=== PATIENT | female | born 1970 | race Caucasian/White ===

== ENCOUNTER → 2017-04-16 | Outpatient (CLI) | payer OTHER ==
[~2017-04-16] MED LIST: NORCO 325 MG-51 TAB PO
== END ==
LOC: MC.RAD 13:40
DX: Z12.31 Encounter for screening mammogram for malignant neoplasm of breast (principal)

== ENCOUNTER 2017-11-05 13:55 | Emergency (ER) | payer OTHER ==
[~2017-11-05] VITALS: Ht 160 cm; Wt 117.3 kg
[2017-11-05 14:01] VITALS: TEMP 98.1
[2017-11-05 14:43] LABS: BASO % 0.4 % (0.0-2.0); EOS # 0.1 (0.0-0.7); EOS % 1.2 % (0-4.0); GRAN # 5.3 (1.4-6.5); GRAN % 54.4 % (42.2-75.2); HEMATOCRIT 42.4 % (37.0-47.0); HEMOGLOBIN 14.3 g/dl (12.5-16.0); LYMPH # 3.6 (1.2-3.4); LYMPH % 36.6 % (20.0-51.0); MEAN CELL VOLUME 90 fl (80.0-100.0); MEAN CORPUSCULAR HEMOGLOBIN 30 pg (27.0-31.0); MEAN CORPUSCULAR HGB CONC 34 g/dl (33.0-37.0); MEAN PLATELET VOLUME 8.9 fl (7.4-10.4); MONO # 0.7 (0.1-0.6); PLATELET COUNT 317 K/mm3 (130-400); REDCELL DISTRIBUTION WIDTH-CV 12.8 % (11.5-14.5)
[2017-11-05 14:56] LABS: ALBUMIN 4.2 gm/dL (3.5-5.0); BILIRUBIN,TOTAL 0.7 mg/dL (0.0-1.0); C-REACTIVE PROTEIN 1.7 mg/dL (0.0-0.9); CREATININE, serum 0.67 mg/dL (0.52-1.25); POTASSIUM 4.1 mmol/L (3.4-5.0); TOTAL PROTEIN 7.8 gm/dL (6.4-8.2)
[2017-11-05 17:13] VITALS: BP 122/72; PULSE 90
== END 2017-11-05 17:14 | disposition home or self-care (01) ==
LOC: COL.ER 13:55
PROVIDERS: Family Medicine
DX: N93.8 Other specified abnormal uterine and vaginal bleeding (principal); Z98.51 Tubal ligation status; F17.210 Nicotine dependence, cigarettes, uncomplicated; Z79.891 Long term (current) use of opiate analgesic
CPT/HCPCS: J1885; J2405; J7030

== ENCOUNTER 2023-08-13 10:04 | Emergency (ER) | payer OTHER ==
[~2023-08-13] VITALS: Ht 162.6 cm; Wt 113.6 kg
[2023-08-13 10:13] VITALS: TEMP 98.2
[2023-08-13] MEDS ORDERED: Morphine 4 MG/ML VIAL IV ONE (10:45)
[2023-08-13] MEDS ORDERED: NS 1,000 ML IV ONE (10:45)
[2023-08-13 10:50] LABS: BASO % 0.3 % (0.0-2.0); EOS # 0.1 K/mm3 (0.0-0.7); EOS % 0.8 % (0.0-4.0); GRAN # 6.6 K/mm3 (1.4-6.5); GRAN % 75.5 % (42.2-75.2); HEMATOCRIT 46.9 % (37.0-47.0); HEMOGLOBIN 15.1 g/dl (12.5-16.0); LYMPH # 1.5 K/mm3 (1.2-3.4); LYMPH % 17.5 % (20.0-51.0); MEAN CELL VOLUME 94 fl (80.0-100.0); MEAN CORPUSCULAR HEMOGLOBIN 30 pg (27-31); MEAN CORPUSCULAR HGB CONC 32 g/dl (33.0-37.0); MONO # 0.5 K/mm3 (0.1-0.6); MONO % 5.7 % (1.7-9.3); PLATELET COUNT 313 K/mm3 (130-400); RED BLOOD COUNT 5.01 M/mm3 (4.10-5.30)
[2023-08-13 11:15] LABS: ALBUMIN 3.4 g/dL (3.5-5.0); BILIRUBIN,TOTAL 0.9 mg/dL (0.2-1.2); CALCIUM 9.5 mg/dL (8.4-10.2); CREATININE, serum 0.74 mg/dL (0.57-1.11); POTASSIUM 4.2 mEq/L (3.5-4.5); TOTAL PROTEIN 7.8 g/dl (6.2-8.1)
[2023-08-13] MEDS ORDERED: Iohexol 300 - 100 ML VIAL IV ONE (11:33)
[2023-08-13] MEDS ORDERED: NS 100 ML IV SCH (11:34)
[2023-08-13] MEDS ORDERED: HYDROmorphone 0.5 MG/0.5 ML SYRINGE IV ONE ×2 (11:45→13:45)
[2023-08-13] MEDS ORDERED: MS CONTIN 115 MG/TAB PO (13:43)
[2023-08-13 14:09] VITALS: BP 138/88; PULSE 102
== END 2023-08-13 14:09 | disposition home or self-care (01) ==
LOC: COL.ER 10:04
PROVIDERS: Physician Assistant
DX: C78.6 Secondary malignant neoplasm of retroperitoneum and peritoneum (principal); N83.9 Noninflammatory disorder of ovary, fallopian tube and broad ligament, unspecified; E66.01 Morbid (severe) obesity due to excess calories; Z68.41 Body mass index [BMI] 40.0-44.9, adult
CPT/HCPCS: J1170; J2270; J7030; Q9967

== ENCOUNTER → 2023-09-04 | Outpatient (CLI) | payer OTHER ==
[~2023-09-04] MED LIST changes: +AMOXICILLIN 50500 MG PO; +FLEXERIL5 MG PO; +LASIX 20MG TABL20 MG PO; +MS CONTIN 115 MG/TAB PO
== END ==
LOC: COL.RAD 11:50
DX: C56.3 Malignant neoplasm of bilateral ovaries (principal)

== ENCOUNTER 2023-10-30 08:30 | Outpatient (CLI) | payer OTHER ==
[~2023-10-30] VITALS: Ht 162.6 cm; Wt 112.5 kg
[2023-10-30 08:41] VITALS: BP 123/86; PULSE 107; TEMP 98
--- NOTE | 2023-10-30 09:00 | NUR ---
PATIENT IS HERE FOR HER PARACENTESIS. PATIENT DECLINES DISCHARGE INSTRUCTIONS SHE IS HERE WEEKLY. PORT ACCESSED WITH GOOD BLOOD RETURN AND FLUSH. ALL NEEDS MET.
[2023-10-30 10:35] VITALS: BP 100/67; PULSE 80
[2023-10-30] MEDS ORDERED: Albumin (Human) 25 G/100 ML IVPB IV SCH (10:45)
[2023-10-30 10:51] LABS: PLEURAL FLUID APPEARANCE TURBID; PLEURAL FLUID COLOR OTHER; PLEURAL FLUID RBC 0 /mm3 (0-0); PLEURAL FLUID WBC 518 /mm3
--- NOTE | 2023-10-30 12:03 | NUR ---
Pt tolerated albumin without issue. She drank juice during infusion, denied desire for food. Port flushed following completion of infusion, site deaccessed and covered with banaid. Pt assisted out to entrance by wheelchair.
== END 2023-10-30 12:03 | disposition home or self-care (01) ==
LOC: COL.RAD 08:30
PROVIDERS: Internal Medicine
DX: C56.3 Malignant neoplasm of bilateral ovaries (principal)
CPT/HCPCS: J1644; P9047

== ENCOUNTER 2023-12-02 08:39 | Outpatient (CLI) | payer OTHER ==
[2023-12-02] MEDS ORDERED: ZOFRAN 4MG T4 MG/TAB PO (08:52)
[2023-12-02 09:00] VITALS: BP 122/84; PULSE 103; TEMP 98.1
[2023-12-02 10:50] VITALS: BP 103/64; PULSE 96
[2023-12-02] MEDS ORDERED: Albumin (Human) 25 G/100 ML IVPB IV SCH (11:00)
[2023-12-02 11:03] LABS: PERITONEAL -POLYMORPHONUCLEAR 2.4 % (0-25)
[2023-12-02] MEDS ORDERED: ALBUMIN 12.5 GM/50 ML IV SCH (12:00)
--- NOTE | 2023-12-02 12:15 | NUR ---
albumin infusion completed, port deaccessed by [facility] after flush protocol, pt discharged amb.
== END 2023-12-02 12:15 | disposition home or self-care (01) ==
LOC: COL.RAD 08:39
PROVIDERS: Internal Medicine
DX: C56.3 Malignant neoplasm of bilateral ovaries (principal)
CPT/HCPCS: J1644; P9047

== ENCOUNTER → 2024-01-18 | Outpatient (CLI) | payer MEDICAID ==
[~2024-01-18] MED LIST changes: +Iohexol 300 - 100 ML VIAL IV ONE; +LEVAQUIN 5500 MG/TA1 PO; +NS 100 ML IV SCH; +ZOFRAN 4MG T4 MG/TAB PO
== END ==
LOC: COL.RAD 08:26
DX: C56.3 Malignant neoplasm of bilateral ovaries (principal); R59.0 Localized enlarged lymph nodes
CPT/HCPCS: Q9967

== ENCOUNTER 2024-01-19 10:42 | Outpatient (CLI) | payer MEDICAID ==
[~2024-01-19] VITALS: Ht 162.6 cm; Wt 106.7 kg
[~2024-01-19 10:42] MED LIST changes: -Iohexol 300 - 100 ML VIAL IV ONE; -NS 100 ML IV SCH
[2024-01-19 10:50] VITALS: BP 121/81; PULSE 100; TEMP 98
[2024-01-19 12:30] VITALS: BP 103/61; PULSE 76; TEMP 99
[2024-01-19] MEDS ORDERED: Albumin (Human) 25 G/100 ML IVPB IV ONE (12:30)
[2024-01-19 13:00] LABS: PERITONEAL -POLYMORPHONUCLEAR 2.7 % (0-25)
--- NOTE | 2024-01-19 13:24 | NUR ---
Pt tolerated albumin without issue. She denied desire for food or drink during infusion. She rested with eyes closed. She remains free of complaints. Port flushed and deaccessed. Site covered with bandaid. She refuses wheelchair or assistance out, stating she is feeling well enough to walk out. She exits with steady gait.
== END 2024-01-19 13:25 | disposition home or self-care (01) ==
LOC: COL.RAD 10:42
PROVIDERS: Internal Medicine
DX: C56.3 Malignant neoplasm of bilateral ovaries (principal)
CPT/HCPCS: P9047

== ENCOUNTER 2024-02-10 09:27 | Outpatient (CLI) | payer MEDICAID ==
[~2024-02-10] VITALS: Ht 162.6 cm; Wt 110.7 kg
[2024-02-10] MEDS ORDERED: LIORESAL 1010 MG/TAB PO (09:38)
[2024-02-10 09:43] VITALS: BP 128/83; PULSE 107; TEMP 99.1
[2024-02-10 11:06] VITALS: BP 99/69; PULSE 87; TEMP 97.9
[2024-02-10] MEDS ORDERED: Albumin (Human) 25 G/100 ML IVPB IV SCH (11:15)
[2024-02-10] MEDS ORDERED: ALBUMIN 12.5 GM/50 ML IV ONE (13:00)
[2024-02-10 13:34] LABS: PERITONEAL -POLYMORPHONUCLEAR 6.9 % (0-25)
== END 2024-02-10 12:58 | disposition home or self-care (01) ==
LOC: COL.RAD 09:27
PROVIDERS: Internal Medicine
DX: C56.3 Malignant neoplasm of bilateral ovaries (principal)
CPT/HCPCS: P9047

== ENCOUNTER → 2024-02-17 | Outpatient (CLI) | payer MEDICAID ==
[~2024-02-17] MED LIST changes: +Iohexol 300 - 100 ML VIAL IV ONE; +LIORESAL 1010 MG/TAB PO; +NS 100 ML IV SCH
== END ==
LOC: COL.RAD 09:08
DX: C56.3 Malignant neoplasm of bilateral ovaries (principal); R59.1 Generalized enlarged lymph nodes
CPT/HCPCS: A9503-JZ; Q9967